=== PATIENT | female | born 1960 | race Caucasian/White ===

== ENCOUNTER 2019-02-19 08:56 | Emergency (ER) | payer MEDICAID ==
[~2019-02-19] VITALS: Wt 78.0 kg
[2019-02-19 11:02] VITALS: BP 142/79; PULSE 78; RESP 18
[2019-02-19] MEDS ORDERED: CEPH-443 PO (11:28)
--- NOTE | 2019-02-19 11:31 | ERD ---
ER Documentation Chief Complaint Chief Complaint epigastric pain x 8 days, hx gerd HPI 58-year-old female presents the emergency department complaining of abdominal pain. Patient is being seen with her family member who is providing translation. Patient has been having a nonspecific, visceral, epigastric burning abdominal discomfort for the last 8 days. Despite taking omeprazole and Gaviscon, nothing seems to help the pain. The pain has not localized. Patient has had no anorexia. She reports no significant vomiting or diarrhea. She reports no urinary or gynecologic symptoms. Patient currently describes the pain as mild to moderate. ROS All systems reviewed and are negative except as per history of present illness. Medications Home Meds Active Scripts Cephalexin* (Keflex*) 500 Mg Capsule, 500 MG PO QID for 5 Days, CAP Prov:TIM GONZALEZ 02/19/19 PMhx/Soc Medical and Surgical Hx: pt denies Medical Hx, pt denies Surgical Hx History of Surgery: No Anesthesia Reaction: No Hx Neurological Disorder: No Hx Respiratory Disorders: No Hx Cardiac Disorders: No Hx Psychiatric Problems: No Hx Miscellaneous Medical Probl: No Hx Alcohol Use: No Hx Substance Use: No Hx Tobacco Use: No Smoking Status: Never smoker FmHx Noncontributory for chief complaint Physical Exam Vitals Vital Signs Date Temp Pulse Resp B/P (MAP) Pulse Ox O2 O2 Flow FiO2 Time Delivery Rate 02/19/19 78 18 142/79 11:02 (100) 02/19/19 98.3 80 18 179/86 99 09:03 (117) Physical Exam GENERAL: The patient is well developed and appropriate for usual state of health in no apparent distress HEENT: Pupils equal, round, and reactive to light. EOMI. There is no scleral icterus. NECK: C-spine is soft and supple, there is no meningismus. There is no cervical lymphadenopathy. LUNGS: Clear to auscultation bilaterally. There are no rales, wheezes or rhonchi. HEART: Regular rate and rhythm, no murmurs, clicks, rubs or gallops. ABDOMEN: Soft, non-tender, non-distended. There are bowel sounds in all four quadrants. No rebound or guarding. EXTREMITIES: There is no peripheral cyanosis or edema. No focal swelling or erythema. NEURO: The patient moves all four extremities with 5/5 strength. Cranial nerves II - XII are intact. Normal gait. Alert and oriented SKIN: There is no apparent rash or petechiae. HEME/LYMPHATIC: There is no evidence of excessive bruising or lymphedema. PSYCHIATRIC: The patient does not appear anxious or depressed. Result Diagram: 02/19/1954 02/19/19 0953 Results 24 hrs Laboratory Tests Test 02/19/19 09:53 02/19/19 10:05 White Blood Count 7.6 10^3/ul Red Blood Count 4.36 10^6/ul Hemoglobin 11.5 g/dl Hematocrit 36.7 % Mean Corpuscular Volume 84.2 fl Mean Corpuscular Hemoglobin 26.4 pg Mean Corpuscular Hemoglobin Concent 31.3 g/dl Red Cell Distribution Width 13.3 % Platelet Count 328 10^3/UL Mean Platelet Volume 9.4 fl Immature Granulocytes % 0.400 % Neutrophils % 73.0 % Lymphocytes % 19.1 % Monocytes % 6.6 % Eosinophils % 0.5 % Basophils % 0.4 % Nucleated Red Blood Cells % 0.0 /100WBC Immature Granulocytes # 0.030 10^3/ul Neutrophils # 5.5 10^3/ul Lymphocytes # 1.4 10^3/ul Monocytes # 0.5 10^3/ul Eosinophils # 0.0 10^3/ul Basophils # 0.0 10^3/ul Nucleated Red Blood Cells # 0.0 10^3/ul Sodium Level 142 mmol/L Potassium Level 4.4 mmol/L Chloride Level 105 mmol/L Carbon Dioxide Level 28 mmol/L Anion Gap 9 Blood Urea Nitrogen 16 mg/dl Creatinine 0.60 mg/dl Est Glomerular Filtrat Rate mL/min > 60 mL/min Glucose Level 104 mg/dl Calcium Level 10.5 mg/dl Total Bilirubin 0.5 mg/dl Direct Bilirubin 0.00 mg/dl Indirect Bilirubin 0.5 mg/dl Aspartate Amino Transf (AST/SGOT) 19 IU/L Alanine Aminotransferase (ALT/SGPT) 18 IU/L Alkaline Phosphatase 60 IU/L Troponin I < 0.012 ng/ml Total Protein 7.5 g/dl Albumin 4.6 g/dl Globulin 2.90 g/dl Albumin/Globulin Ratio 1.58 Lipase 63 U/L Urine Color YELLOW Urine Clarity SLIGHTLY CLOUDY Urine pH 6.0 Urine Specific [place] 1.014 Urine Ketones TRACE mg/dL Urine Nitrite NEGATIVE mg/dL Urine Bilirubin NEGATIVE mg/dL Urine Urobilinogen NEGATIVE mg/dL Urine Leukocyte Esterase 2+ [place]/ul Urine Microscopic RBC 5 /HPF Urine Microscopic WBC 82 /HPF Urine Squamous Epithelial Cells FEW /HPF Urine Bacteria FEW /HPF Urine Mucus FEW /HPF Urine Hemoglobin 1+ mg/dL Urine Glucose NEGATIVE mg/dL Urine Total Protein NEGATIVE mg/dl Procedures/MDM Patient was taken to a room, seen and evaluated. Comfort measures were initiat ed. Diagnostic tests were ordered and reviewed. 3 LEAD RHYTHM STRIP: Normal sinus rhythm without ectopy EK lead EKG reviewed by myself: Normal Sinus Rhythm Normal [place] and intervals No ST elevation, depression, or T wave inversion Impression: Normal EKG RADIOLOGY: Reviewed with the radiologist REEVALUATION: 1130: Diagnostic tests were appreciated. Reevaluation of the patient showed that she had no significant abdominal findings including no evidence of appendicitis. She appeared to be clinically well and was discharged home MEDICAL DECISION MAKING: Patient presents with abdominal pain of uncertain etiology. Differential diagnosis considered includes appendicitis, diverticulitis, cholecystitis and other intra-abdominal medical and surgical concerns. I have reviewed the patients lab studies and imaging as well as multiple examinations of the abdomen. At this time, patient shows no clinical evidence of significant high risk concerns including no evidence of appendicitis. She has evidence of urinary tract infection, but no evidence of pyelonephritis or sepsis. Patient is appropriate for outpatient supportive care for the nonspecific abdominal symptoms as well as antibiotics for the urinary tract infection. Departure Diagnosis: Primary Impression: UTI (urinary tract infection) Additional Impression: Abdominal pain Condition: Good Patient Instructions: Abdominal Pain, Understanding Urinary Tract Infections (UTIs) Additional Instructions: See your doctor for follow-up as discussed. Take a copy of your test results, if appropriate, to this follow-up visit. See your doctor or return here if your symptoms do not improve as expected. At any time, please return to the emergency department for any change or worsening in her symptoms. TIM GONZALEZ Feb 19, 2019 11:31
== END 2019-02-19 11:34 | disposition home or self-care (01) ==
LOC: E/R 08:56
DX: N39.0 Urinary tract infection, site not specified (principal)
CPT/HCPCS: 36415; 80053; 81001; 83690; 84484; 85025; 93005; Z7502

== ENCOUNTER 2019-03-10 07:39 | Emergency (ER) | payer MEDICAID ==
[~2019-03-10] VITALS: Ht 160 cm; Wt 61.7 kg
[~2019-03-10 07:39] MED LIST: CEPH-443 PO
[2019-03-10 07:48] VITALS: Ht 160 cm; Wt 61.7 kg
--- NOTE | 2019-03-10 09:58 | ERD ---
ER Documentation Chief Complaint Chief Complaint epigastric pain and heartburn x 1 month HPI This is a 58-year-old female who is here for follow-up for heartburn. The patient was seen here and given omeprazole because she was having a bitter taste in her mouth all the time. She is not having direct heartburn or epigastric pain or substernal chest burning or pain she does has a constant bitter taste in her mouth after eating meals. She tried omeprazole for a week and did not get better so she is here for a reevaluation. ROS All systems reviewed and are negative except as per history of present illness. Medications Home Meds Active Scripts Cephalexin* (Keflex*) 500 Mg Capsule, 500 MG PO QID for 5 Days, CAP Prov:TIM GONZALEZ 02/19/19 Allergies Allergies: Coded Allergies: No Known Allergy (Unverified , 02/19/19) PMhx/Soc History of Surgery: No Anesthesia Reaction: No Hx Neurological Disorder: No Hx Respiratory Disorders: No Hx Cardiac Disorders: No Hx Psychiatric Problems: No Hx Miscellaneous Medical Probl: No Hx Alcohol Use: No Hx Substance Use: No Hx Tobacco Use: No FmHx Family History: No coronary disease Physical Exam Vitals Vital Signs Date Temp Pulse Resp B/P (MAP) Pulse Ox O2 O2 Flow FiO2 Time Delivery Rate 03/10/19 97.7 80 18 195/94 100 07:48 (127) Physical Exam Const: Well-developed, well-nourished Head: Atraumatic, normocephalic Eyes: Normal Conjunctiva, PERRLA, EOMI, normal sclera, no nystagmus ENT: Normal External Ears, Nose and Mouth, moist mucus membranes. Neck: Full range of motion. No meningismus, no lymphadenopathy. Resp: Clear to auscultation bilaterally, no wheezing, rhonchi, rales Cardio: Regular rate and rhythm, no murmurs, S1 S2 present Abd: Soft, non tender x 4, non distended. Normal bowel sounds, no guar ding or rebound, no pulsitile abdominal masses or bruits Skin: No petechiae or rashes, no ecchymosis , no maculopapular rash Back: No midline or flank tenderness Ext: No cyanosis, or edema, FROM x 4, normal inspection, neurovascularly intact x 4 Neur: Awake and alert, STR 5/5 x 4, sensation intact x 4, no focal findings, cerebellum intact Psych: Normal Mood and Affect Const: No acute distress Head: Atraumatic Eyes: Normal Conjunctiva ENT: Normal External Ears, Nose and Mouth. Neck: Full range of motion. No meningismus. Resp: Clear to auscultation bilaterally Cardio: Regular rate and rhythm, no murmurs Abd: Soft, non tender, non distended. Normal bowel sounds Skin: No petechiae or rashes Back: No midline or flank tenderness Ext: No cyanosis, or edema Neur: Awake and alert Psych: Normal Mood and Affect Procedures/MDM Reviewed with [employer] former, idalia KEARNS, for her to have specific dietary changes and to do a trial of apple cider vinegar before meals. She will try this with a digestive enzyme and will refer to GI Departure Diagnosis: Primary Impression: GERD (gastroesophageal reflux disease) Esophagitis presence: esophagitis presence not specified Qualified Codes: K21.9 - Gastro-esophageal reflux disease without esophagitis Condition: Stable Patient Instructions: Gerd (Adult) Referrals: POONAM CORTEZ MD, APOSTOLOS A. DO March 10, 2019 09:58
[2019-03-10 10:12] VITALS: BP 128/88; PULSE 74; RESP 18
== END 2019-03-10 10:14 | disposition home or self-care (01) ==
LOC: E/R 07:39
DX: K21.9 Gastro-esophageal reflux disease without esophagitis (principal)
CPT/HCPCS: 99282